=== PATIENT | male | born 1960 | race Caucasian/White ===

== ENCOUNTER 2017-01-18 10:05 | Outpatient (CLI) | payer BC, OTHER ==
[2017-01-18 13:27] LABS: BILIRUBIN,URINE NEGATIVE (NEGATIVE); PH,URINE 6.5 PH (5.0-7.5)
[2017-01-18 13:35] LABS: UA CHARGE (STRIP ONLY) YES
[2017-01-18 15:24] LABS: BASOPHILS # (AUTO) 0.1 10^3/uL (0.0-0.1); BASOPHILS % (AUTO) 0.5 %; EOSINOPHILS # (AUTO) 0.1 10^3/uL (0.0-0.7); EOSINOPHILS % (AUTO) 0.9 %; HCT - HEMATOCRIT 33.1 % (42.0-52.0); HGB - HEMOGLOBIN 11.2 g/dL (14.0-18.0); LYMPHOCYTES % (AUTO) 8.7 %; MEAN CORPUSCULAR HEMOGLOBIN 32.3 pg (27.0-31.0); MEAN CORPUSCULAR HGB CONC 33.7 g/dL (32.0-36.0); MEAN CORPUSCULAR VOLUME 95.9 fL (80.0-94.0); MEAN PLATELET VOLUME 7.5 fL (7.4-11.4); MONOCYTES # (AUTO) 0.8 10^3/uL (0.0-1.0); MONOCYTES % (AUTO) 7.3 %; NEUTROPHILS # (AUTO) 9.2 10^3/uL (1.5-6.6); NEUTROPHILS % (AUTO) 82.6 %; RED BLOOD COUNT 3.46 10^6/uL (4.70-6.10); RED CELL DISTRIBUTION WIDTH 15.1 % (12.0-15.0); UNCORRECTED WHITE BLOOD COUNT 11.2 x10^3/uL; WHITE BLOOD COUNT 11.2 x10^3/uL (4.8-10.8)
== END 2017-01-18 10:06 | disposition home or self-care (01) ==
LOC: LAB.R 10:05
DX: N39.0 Urinary tract infection, site not specified (principal)
CPT/HCPCS: 81001; 81003; 85025; 87086

== ENCOUNTER 2017-02-02 07:01 | Outpatient (CLI) | payer BC ==
[2017-02-02 22:43] LABS: HCT - HEMATOCRIT 40.7 % (42.0-52.0); HGB - HEMOGLOBIN 13.6 g/dL (14.0-18.0); MEAN CORPUSCULAR HGB CONC 33.3 g/dL (32.0-36.0); MEAN CORPUSCULAR VOLUME 95.9 fL (80.0-94.0); RED BLOOD COUNT 4.24 10^6/uL (4.70-6.10); WHITE BLOOD COUNT 8.3 x10^3/uL (4.8-10.8)
[2017-02-02 22:44] LABS: BILIRUBIN,URINE NEGATIVE (NEGATIVE); PH,URINE 5.5 PH (5.0-7.5)
[2017-02-02 22:47] LABS: UA w/ MICROSCOPIC CHARGE YES
[2017-02-02 22:48] LABS: CALCIUM 9.3 mg/dL (8.5-10.3); CREATININE 1.1 mg/dL (0.6-1.2); PHOSPHORUS 4.1 mg/dL (2.5-4.6); POTASSIUM 4.2 mmol/L (3.5-5.0)
[2017-02-02 22:55] LABS: UR CULTURE IF IND INDICATED
== END 2017-02-02 23:59 ==
LOC: LAB.R 07:01
DX: C67.8 Malignant neoplasm of overlapping sites of bladder (principal)
CPT/HCPCS: 80069; 81001; 81003; 87086

== ENCOUNTER 2017-02-09 14:14 | Emergency (ER) | payer BC ==
[2017-02-09] MEDS ORDERED: HYDROmorphone 1 MG/ML SYRINGE IM STA ×2 (15:36→17:25)
[2017-02-09] MEDS ORDERED: oxyCODONE 5 MG TABLET PO STA (15:37)
[2017-02-09] MEDS ORDERED: HYDROmorphone 1 MG/ML SYRINGE ONE ×2 (15:38→17:38)
[2017-02-09] MEDS ORDERED: oxyCODONE 5 MG TABLET ONE (15:38)
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
[2017-02-09] MEDS ORDERED: CYCLOBENZAPRINE 10 MG TABLET PO STA (17:25)
[2017-02-09] MEDS ORDERED: ONDANSETRON ODT 4 MG TABLET TL STA (17:25)
[2017-02-09] MEDS ORDERED: ONDANSETRON ODT 4 MG TABLET ONE (17:38)
[2017-02-09] MEDS ORDERED: CYCLOBENZAPRINE 10 MG TABLET PO ONE (17:38)
[2017-02-09 18:07] VITALS: BP 140/80
== END 2017-02-09 18:24 | disposition home or self-care (01) ==
LOC: ED 14:14
DX: S22.41XA Multiple fractures of ribs, right side, initial encounter for closed fracture (principal); V29.60XA Unspecified motorcycle rider injured in collision with unspecified motor vehicles in traffic accident, initial encounter
CPT/HCPCS: 71250; 96372; 99283; 99284; A9270; J1170; Q0162

== ENCOUNTER 2017-02-19 07:37 | Outpatient (CLI) | payer BC | END 2017-02-19 07:38 | disposition short-term general hospital (02) | LOC: EMS 07:37 | PROVIDERS: ATTEND Surgery | DX: R10.9 Unspecified abdominal pain (principal) | CPT/HCPCS: A0425; A0427 ==

== ENCOUNTER 2017-07-21 10:20 | Emergency (ER) | payer BC ==
[2017-07-21 10:30] VITALS: BP 134/86
--- NOTE | 2017-07-21 11:15 | XRAY Preliminary Report ---
Exam: XR ANKLE 3 VIEW RT IMPRESSION: 1. Right lateral talar process avulsion fracture. 2. Prominent right anterior calcaneal process versus avulsion fracture. If further detail is warrante d CT recommended. [facility] SITE ID: [id number]
--- NOTE | 2017-07-21 11:16 | XRAY Report ---
EXAM: RIGHT ANKLE RADIOGRAPHY EXAM DATE: 07/21/2017 10:43 AM. CLINICAL HISTORY: Rolled ankle. Right ankle pain. COMPARISON: None. TECHNIQUE: 3 views. FINDINGS: Bones: Chip avulsion fracture present arising from the right lateral talar process. Calcific density along the distal right lateral calcaneus and anterior process seen on the frontal view may represent an avulsion fracture or prominent anterior right calcaneus. No other osseous abnormalities. Joints: Ankle mortise is well-maintained. No ankle effusion. Soft Tissues: Soft tissue swelling. IMPRESSION: 1. Right lateral talar process avulsion fracture. 2. Prominent right anterior calcaneal process versus avulsion fracture. If further detail is warrante d CT recommended. [facility] Referring Provider Line: [phone] SITE ID: [id number]
[2017-07-21] MEDS ORDERED: IBUPROFEN 800 MG TABLET PO STA (12:33)
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
[2017-07-21] MEDS ORDERED: IBUPROFEN 800 MG TABLET PO ONE (12:42)
== END 2017-07-21 12:43 | disposition home or self-care (01) ==
LOC: ED 10:20
DX: S92.154A Nondisplaced avulsion fracture (chip fracture) of right talus, initial encounter for closed fracture (principal); X50.9XXA Other and unspecified overexertion or strenuous movements or postures, initial encounter; Y92.019 Unspecified place in single-family (private) house as the place of occurrence of the external cause
CPT/HCPCS: 73610; 99283; A9270

== ENCOUNTER 2023-04-04 13:48 | Emergency (ER) | payer BC, OTHER ==
[2023-04-04 14:10] LABS: BASOPHILS % (AUTO) 0.3 %; EOSINOPHILS # (AUTO) 0.1 10^3/uL (0.0-0.7); EOSINOPHILS % (AUTO) 1.2 %; HCT - HEMATOCRIT 46.9 % (42.0-52.0); HGB - HEMOGLOBIN 15.6 g/dL (14.0-18.0); LYMPHOCYTES # (AUTO) 1.5 10^3/uL (1.5-3.5); LYMPHOCYTES % (AUTO) 19.7 %; MEAN CORPUSCULAR HEMOGLOBIN 31.6 pg (27.0-31.0); MEAN CORPUSCULAR HGB CONC 33.3 g/dL (32.0-36.0); MEAN CORPUSCULAR VOLUME 95.1 fL (80.0-94.0); MONOCYTES # (AUTO) 0.5 10^3/uL (0.0-1.0); NEUTROPHILS # (AUTO) 5.4 10^3/uL (1.5-6.6); NEUTROPHILS % (AUTO) 71.5 %; PLT - PLATELET COUNT 263 10^3/uL (130-450); RED BLOOD COUNT 4.93 10^6/uL (4.70-6.10); RED CELL DISTRIBUTION WIDTH 12.3 % (12.0-15.0); WHITE BLOOD COUNT 7.6 x10^3/uL (4.8-10.8)
[2023-04-04 14:23] LABS: ALBUMIN 4.3 g/dL (3.2-5.5); ALBUMIN/GLOBULIN RATIO 1.7 (1.0-2.2); BILIRUBIN,TOTAL 1.3 mg/dL (0.2-1.0); CALCIUM 9.8 mg/dL (8.5-10.3); CREATININE 0.9 mg/dL (0.6-1.3); POTASSIUM 3.6 mmol/L (3.5-4.5); TOTAL PROTEIN 6.9 g/dL (6.4-8.9)
[2023-04-04] MEDS ORDERED: SODIUM CHLORIDE 0.9% 1,000 ML IV STA (15:57)
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
[2023-04-04] MEDS ORDERED: HYDROmorphone 1 MG/ML CARPUJECT IVP STA ×2 (16:18→19:08)
--- NOTE | 2023-04-04 18:30 | CT Report ---
PROCEDURE: ABDOMEN/PELVIS W INDICATIONS: IV only, abd/rectal pain CONTRAST: 100mL Omni 300 TECHNIQUE: After the administration of intravenous contrast, 5 mm thick sections acquired from the diaphragms to the symphysis. 5 mm thick coronal and sagittal reformats were acquired. For radiation dose reducti on, the following was used: automated exposure control, adjustment of mA and/or kV according to deepak ent size. COMPARISON: None FINDINGS: Image quality: Excellent. Lung bases and heart: Unremarkable. Liver: No liver mass. Mild diffuse intrahepatic biliary dilatation. Gallbladder and biliary tree: Surgically absent gallbladder. Biliary tree is slightly dilated measuri ng 1.2 cm in diameter maximally. No visible calcifications. Spleen: Normal. Pancreas: Normal. Adrenals: No nodules. Kidneys and ureters: No hydronephrosis. No renal cystic lesion which requires follow up. No solid mas s. Bowel and peritoneum: Mild dilatation of the proximal sigmoid colon solid stool. Distally, there is s uspicious circumferential bowel wall thickening of the distal sigmoid/proximal rectum which may refle ct bowel spasm versus wall edema versus tumor. Proximal colon and small bowel loops are within normal limits. The stomach is normal. There is suggestion of nodularity in the epigastric omentum and also seen in the left upper quadrant. No free fluid or free air. Lymph nodes: Borderline mesenteric adenopathy in the lower small bowel mesentery. No bulky retroperit piedra nodes. Vessels: Normal caliber vasculature. Moderate abdominal aortic calcification. PELVIS Reproductive organs: Normal size. Bladder: Decompressed urinary bladder. Pelvic lymph nodes: No pelvic adenopathy by size criteria. Bones: There is surgical fusion across both sacroiliac joints. There is a chronic deformity of the pu bic rami suggesting remote trauma. No acute fractures. Other: No significant ventral or inguinal hernia. IMPRESSION: 1. Findings suspicious for distal colonic/rectal mass. Infection or neoplasm may be present. Colonosc opy is recommended to seems clinically feasible. 2. There is suspicious omental nodularity and peritoneal surface nodularity concerning for metastatic disease. 3. Postcholecystectomy with mild intrahepatic biliary dilatation. Correlate with LFTs to determine cl inical significance. Reviewed by: Teresa Grimm MD on 04/04/2023 6:29 PM PDT Approved by: Teresa Grimm MD on 04/04/2023 6:29 PM PDT Station ID: [id number]
[2023-04-04 19:33] VITALS: BP 150/87; O2SAT 98
[2023-04-05] MEDS ORDERED: iohexoL-300 100 ML VIAL IVP ONE (01:18)
== END 2023-04-04 19:30 | disposition home or self-care (01) ==
LOC: ED 13:48
DX: R10.2 Pelvic and perineal pain (principal); R93.3 Abnormal findings on diagnostic imaging of other parts of digestive tract; Z85.51 Personal history of malignant neoplasm of bladder
CPT/HCPCS: 36415; 74177; 80053; 83690; 85025; 96374; 99284; J1170; Q9967

== ENCOUNTER 2023-04-27 01:07 | Outpatient (CLI) | payer OTHER | END 2023-04-27 01:08 | disposition critical access hospital (66) | LOC: EMS 01:07 | DX: R10.30 Lower abdominal pain, unspecified (principal); K59.00 Constipation, unspecified; R11.10 Vomiting, unspecified | CPT/HCPCS: A0425; A0429 ==

== ENCOUNTER 2023-04-27 01:25 | Emergency (ER) | payer OTHER ==
--- NOTE | 2023-04-27 01:24 | ED Physician Documentation ---
PD HPI ABD PAIN - Stated complaint Stated Complaint: ABD PX - History obtained from History obtained from: Patient, EMS - Additional information Additional information: MADELINE (BLS). HPI from BLS as well as from patient. Patient complains of generalized abdominal pain since earlier tonight associated with nausea and vomiting. There was no inciting event. Pain is worse with palpation. He has had similar symptoms for several weeks; he was treated and released from this emergency department 04/04/23 for these symptoms. He was subsequently evaluated in [facility] ED for same symptoms, admitted 04/18 and discharged 04/21. Patient says he has had nausea and vomiting with the pain. He says the suspected cause of his symptoms based on testing here and at [facility] is constipation. 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 He has not scheduled a follow-up appointment with GI. Patient denies fever, blood in stool or vomitus, black/tarry stool. There are no ameliorating factors; he was prescribed percocet from this ED last month but patient says he has not taken any due to diagnosis of constipation and thus concern that narcotic/opiate medication would worsen constipation. Patient says he has been taking very little solid PO over past few weeks, mostly drinking liquids and taking ensure to provide nutrition. Review of Systems Constitutional: reports: Reviewed and negative Cardiac: reports: Reviewed and negative Respiratory: reports: Reviewed and negative GI: reports: Abdominal Pain, Nausea, Vomiting, Constipation. denies: Abdominal Swelling, Diarrhea, Hematemesis, Bloody / black stool : denies: Dysuria, Frequency PD PAST MEDICAL HISTORY - Past Medical History Past Medical History: Yes - Present Medications Home Medications: Ambulatory Orders Medication Instructions Recorded Confirmed oxyCODONE/ACET 5/325 [Percocet 5 1 each PO Q4-6H PRN #15 tablet 04/17/13 07/21/17 mg/325 mg] Enoxaparin [Lovenox] 30 mg PO DAILY 02/09/17 07/21/17 Ondansetron Odt [Zofran] 4 mg TL Q6H PRN #20 tablet 02/09/17 07/21/17 Oxycodone HCl 5 - 10 mg PO Q6H PRN #20 capsule 02/09/17 07/21/17 Sulfamethox/Trimeth 800/160 1 tab PO DAILY 02/09/17 07/21/17 [Bactrim Ds] methocarbamoL [Robaxin-750] 750 mg PO Q8HR PRN #14 tablet 02/09/17 07/21/17 Ciprofloxacin HCl [Cipro] 500 mg PO BID #14 tablet 04/04/23 Dicyclomine [Bentyl] 1 - 2 tab PO QID PRN #20 cap 04/04/23 Ondansetron Odt [Zofran] 4 mg TL Q6H PRN #10 tablet 04/04/23 Oxycodone HCl/Acetaminophen 1 - 2 each PO Q6H PRN #14 tablet 04/04/23 [Percocet 5-325 mg Tablet] metroNIDAZOLE [Flagyl] 500 mg PO TID 7 Days #21 tablet 04/04/23 Ciprofloxacin HCl 1 tablet PO BID 7 Days #14 tablet 04/27/23 Ondansetron Odt [Zofran Odt] 4 mg TL Q6H PRN #14 tablet 04/27/23 metroNIDAZOLE [Flagyl] 500 mg PO TID 7 Days #21 tablet 04/27/23 oxyCODONE [Roxicodone] 5 - 10 mg PO Q6H PRN #14 tablet 04/27/23 - Allergies Allergies/Adverse Reactions: Allergies Allergy/AdvReac Type Severity Reaction Status Date / Time No Known Drug Allergies Allergy Verified 04/17/13 06:17 PD ED PE NORMAL - Vitals Vital signs reviewed: Yes - General General: Alert and oriented X 3, Well developed/nourished, Other (AAOx3, appears to be uncomfortable due to pain and at times is in obvious painful distress) - HEENT HEENT: Other (tacky mucous membranes) - Neck Neck: Supple, no meningeal sign - Cardiac Cardiac: RRR, No murmur - Respiratory Respiratory: No respiratory distress, Clear bilaterally - Abdomen Abdomen: Normal bowel sounds, Non distended, Other (diffuse mild TTP without rebound or guarding) - Back Back: No CVA TTP Results - Vitals Vitals: Vital Signs - 24 hr 04/27/23 04/27/23 06:12 08:25 Temperature 36.4 C L Heart Rate 83 73 Respiratory 18 20 Rate Blood Pressure 186/107 H 188/97 H O2 Saturation 98 100 Oxygen O2 Source Room air - Labs Labs: Laboratory Tests 04/27/23 04/27/23 01:35 01:35 WBC 8.2 RBC 4.48 L Hgb 14.3 Hct 42.2 MCV 94.2 H MCH 31.9 H MCHC 33.9 RDW 12.4 Plt Count 236 MPV 9.7 Neut # (Auto) 6.9 H Lymph # (Auto) 0.8 L Bowie # (Auto) 0.4 Eos # (Auto) 0.0 Baso # (Auto) 0.0 Absolute Nucleated RBC 0.00 Nucleated RBC % 0.0 Sodium 138 Potassium 4.0 Chloride 102 Carbon Dioxide 27 Anion Gap 9.0 BUN 16 Creatinine 0.9 Estimated GFR (MDRD) 85 L Glucose 114 H Calcium 9.6 Total Bilirubin 0.9 AST 12 ALT 9 L Alkaline Phosphatase 57 Total Protein 6.3 L Albumin 3.9 Globulin 2.4 Albumin/Globulin Ratio 1.6 Lipase 12 - Rads (name of study) CT A/P with IV contrast Relevant Findings:: Prelim report reviewed, See rad report PD Medical Decision Making - ED course Complexity details: reviewed old records (reviewed ED MD note from last month's [facility] ED visit. Also requested d/c summary from inpatient stay ([facility]) last week ;received these records by fax and reviewed by me), reviewed results, re- evaluated patient, considered differential, d/w patient ED course: Unremarkable CBC, ER abdominal panel including LFTs, lipase. He is given total of two liters NS IV during his ED stay. He is also given 30mg IV ketoroloac, 4mg IV zofran x 2 doses, 2.5 mg IV droperidol, 6mg IV morphine sulfate IV, and 1 mg IV dilaudid with repeat (second) dose. CT A/P with IV contrast (could not tolerate PO) interpreted by radiologist as findings c/w diffuse enteritis and proximal colitis. Results d/w patient. Despite needing repeated doses of anti-nauseants and analgesics (both non- narcotic as well as narcotic/opiate), he was getting symptom relief between redosing of medications. After results of tests returned, I reviewed the results with patient. I discussed diagnosis of enterocolitis. At this time, there is no apparent indication for benefit/necessity for inpatient treatment. Ideally he can be seen in follow up with his asphalt coater. I advised him to contact his GI group as well as PCP and make appointments (next available) for both. I am e-prescribing oxycodone, ondansetron, ciprofloxacin , and metronidazole for him ([facility]). The antibiotics are to cover for possible bacterial cause. I am prescribing the oxycodone because although patient says he has not taken any of the previously prescribed percocet, he does not know if he even filled the rx or, if he did, where it is. Return precautions are carefully discussed. Departure - Departure Disposition: Home, Self Care Clinical Impression: Enteritis Condition: Good Instructions: ED Abdominal Pain Unkn Cause Male Prescriptions: Ciprofloxacin HCl 1 tablet PO BID 7 Days #14 tablet metroNIDAZOLE [Flagyl] 500 mg PO TID 7 Days #21 tablet oxyCODONE [Roxicodone] 5 - 10 mg PO Q6H PRN #14 tablet PRN Reason: Pain >8 Ondansetron Odt [Zofran Odt] 4 mg TL Q6H PRN #14 tablet PRN Reason: Nausea / Vomiting Comments: The CT scan performed tonight shows diffuse inflammation of your small intestines, a condition called enteritis; the inflammation extends into the large intestine as well, which is colitis. The combination of small and large intestine inflammation is called enterocolitis. There are various causes of enterocolitis including infectious (bacterial, viral, parasitic), inflammatory bowel diseases such as Crohn's disease or ulcerative colitis, celiac disease (gluten intolerance); there are other causes, as well. Follow-up with your asphalt coater as soon as can be arranged; they would be the most likely branch of medicine to determine, if possible, the underlying cause of your enterocolitis. You should also follow-up with your primary care provider, as well. Your primary care provider might also be able to continue testing to potentially determine the underlying cause of your symptoms. In the meantime, I am prescribing another course of the antibiotics you were prescribed last month from this emergency department. The reason for this is, as noted above, bacteria are a possible cause of enterocolitis; the antibiotics I am prescribing for you have broad coverage of the most common bacterial causes of this diagnosis. I am also prescribing oxycodone, as you have indicated to me that you are not sure if you have this medication at home from the previous ED visit. Lastly, I am prescribing ondansetron (antinausea medication), as well. These prescriptions are all being electronically submitted to the [facility] in [place]. [place]ed[place]'s CT again shows some thickening of the wall of the rectum, raising the possibility of a mass (malignancy). The radiologist notes that this appears the same as the CT scan performed in this ED last month. I am prescribing a short course of narcotic pain medication for you. These are potentially dangerous and addictive medications that should be used carefully. These medications may constipate you. Take an qzaf-iwd-ogzzoir stool softener (docusate) twice daily with plenty of water while taking these medications. If you go 24 hours without a bowel movement, take wgog-itd-ettoppn miralax, per package instructions. Do not drink or drive while taking these medications. If you received narcotic or sedating medications while in the emergency department, do not drive for 24 hours. Store this medication in a safe, secure place and out of reach of children. It is a violation of federal law to give or sell this medication to another person or to use in a manner other than prescribed. The ED will not refill narcotic prescriptions, including prescriptions lost or stolen. To dispose of unwanted medications: 1. [facility] at [address] in [place] has a medication drop box. They accept prescription medications (in pill form) Tuesday through Tuesday 9:00 a.m. to 5:00 p.m. 2. [facility] accepts prescription medications (in pill form only) for disposal year round. Call for more inf ormation. 3. Contact the [facility] for the next [facility] sponsored prescription drug collection event. , [phone], or [phone]; Forms: PCP List Discharge Date/Time: 04/27/23 08:26
[2023-04-27] MEDS ORDERED: SODIUM CHLORIDE 0.9% 1,000 ML IV STA ×2 (01:36→03:20)
[2023-04-27] MEDS ORDERED: KETOROLAC 30 MG/ML VIAL IVP STA (01:37)
[2023-04-27] MEDS ORDERED: ONDANSETRON 4 MG/2 ML VIAL IVP STA ×2 (01:37→03:20)
[2023-04-27 01:48] LABS: BASOPHILS % (AUTO) 0.4 %; EOSINOPHILS % (AUTO) 0.4 %; HCT - HEMATOCRIT 42.2 % (42.0-52.0); HGB - HEMOGLOBIN 14.3 g/dL (14.0-18.0); LYMPHOCYTES # (AUTO) 0.8 10^3/uL (1.5-3.5); LYMPHOCYTES % (AUTO) 9.3 %; MEAN CORPUSCULAR HEMOGLOBIN 31.9 pg (27.0-31.0); MEAN CORPUSCULAR HGB CONC 33.9 g/dL (32.0-36.0); MEAN CORPUSCULAR VOLUME 94.2 fL (80.0-94.0); MEAN PLATELET VOLUME 9.7 fL (7.4-11.4); MONOCYTES # (AUTO) 0.4 10^3/uL (0.0-1.0); MONOCYTES % (AUTO) 4.9 %; NEUTROPHILS # (AUTO) 6.9 10^3/uL (1.5-6.6); NEUTROPHILS % (AUTO) 84.8 %; PLT - PLATELET COUNT 236 10^3/uL (130-450); RED BLOOD COUNT 4.48 10^6/uL (4.70-6.10); RED CELL DISTRIBUTION WIDTH 12.4 % (12.0-15.0); WHITE BLOOD COUNT 8.2 x10^3/uL (4.8-10.8)
[2023-04-27 02:04] LABS: ALBUMIN 3.9 g/dL (3.2-5.5); ALBUMIN/GLOBULIN RATIO 1.6 (1.0-2.2); BILIRUBIN,TOTAL 0.9 mg/dL (0.2-1.0); CALCIUM 9.6 mg/dL (8.5-10.3); CREATININE 0.9 mg/dL (0.6-1.3); TOTAL PROTEIN 6.3 g/dL (6.4-8.9)
[2023-04-27] MEDS ORDERED: DROPERIDOL 5 MG/2 ML VIAL IVP STA (02:27)
[2023-04-27] MEDS ORDERED: MORPHINE 2 MG/ML CARPUJECT IVP STA (03:19)
[2023-04-27] MEDS ORDERED: HYDROmorphone 1 MG/ML CARPUJECT IVP STA ×2 (04:15→07:49)
[2023-04-27] MEDS ORDERED: IOVERSOL 320 100 ML VIAL IVP ONE (06:28)
[2023-04-27 08:33] VITALS: BP 188/97; O2SAT 100
--- NOTE | 2023-04-27 08:56 | CT Report ---
PROCEDURE: ABDOMEN/PELVIS W INDICATIONS: abdominal pain CONTRAST: Opti 320 100ml TECHNIQUE: After the administration of IV contrast, 5 mm thick sections acquired from the diaphragms to the symp hysis. 5 mm thick coronal and sagittal reformats were acquired. For radiation dose reduction, the f ollowing was used: automated exposure control, adjustment of mA and/or kV according to patient size. COMPARISON: CT abdomen 04/04/2023 FINDINGS: Image quality: There is limited visualization of the pelvis secondary to artifact from SI joint fusio n hardware. Lung bases and heart: Unremarkable. Liver: No solid mass. Gallbladder and biliary tree: Collaterals been removed. Mild prominence of the biliary system. This c ould be related to postcholecystectomy sequela as it is unchanged. However, recommend correlation wit h laboratory values. Spleen: No splenomegaly. Pancreas: No pancreatic ductal dilation. Adrenals: No adrenal nodule. Kidneys and ureters: No hydronephrosis. No renal cystic lesion which requires follow up. No solid mas s. Bowel and peritoneum: There is mild fluid distention and mild thickening within the small bowel.. The proximal colon is also present. Hiatal hernia is present. Mild perihepatic and minimal scattered asc ites. As identified on prior exam, there is an appearance of bowel wall thickening in the distal sigm oid/proximal rectum. This is again identified without change. Lymph nodes: Previous identified appearance of borderline adenopathy within the small bowel mesentery remains present particularly noting areas of nodularity in the right upper abdomen on series 2 image s [id number]. Vessels: No infrarenal aortic aneurysm. PELVIS Reproductive organs: Unremarkable. Bladder: No abnormal wall thickening, accounting for underdistension. Pelvic lymph nodes: No pelvic adenopathy by size criteria. Bones: No aggressive osseous abnormality. SI joint fusion is present. Previous fracture of the inferi or pubic rami are noted. Other: No significant ventral or inguinal hernia. IMPRESSION: Appearance of small bowel and proximal colon fluid filled distention with areas of thickening which c ould be indicative of enteritis/colitis. Previously identified thickening at the rectosigmoid junction with areas of soft tissue nodularity an d borderline adenopathy remains concerning for malignancy with potential carcinomatosis. Minimal asci gerald. The above findings are concordant with preliminary report. Reviewed by: Keysha Villatoro MD on 04/27/2023 8:55 AM PDT Approved by: Keysha Villatoro MD on 04/27/2023 8:55 AM PDT Station ID: [id number]
--- NOTE | 2023-04-27 08:58 | XRAY Report ---
PROCEDURE: Abdomen Acute INDICATIONS: abdominal pain TECHNIQUE: 2 views of the abdomen were acquired. COMPARISON: None. FINDINGS: Surgical changes and devices: SI joint fusion. Cholecystectomy clips. Chest: Lungs are clear. Heart size is normal. No pleural effusions. No pneumoperitoneum. Bowel: No pneumoperitoneum. The bowel gas pattern is nonspecific given mild appearance of scattered small bowel fluid levels. Stool load within normal limits. Soft tissues: No masses; visualized solid organ contours appear normal in size. No suspicious abdom inal calcifications. Bones: No acute fractures. IMPRESSION: Nonspecific gas pattern with small scattered fluid levels which may be indicative of developing obstr uction/ileus/enteritis. The above findings are concordant with preliminary report. Reviewed by: Keysha Villatoro MD on 04/27/2023 8:57 AM PDT Approved by: Keysha Villatoro MD on 04/27/2023 8:57 AM PDT Station ID: [id number]
== END 2023-04-27 08:26 | disposition home or self-care (01) ==
LOC: EDUNIT# → ED 01:25
DX: K52.9 Noninfective gastroenteritis and colitis, unspecified (principal)
CPT/HCPCS: 36415; 74022; 74177; 80053; 83690; 85025; 96374; 96375; 96376; 99284; 99285; J1170; Q9967

== ENCOUNTER 2023-06-04 10:54 | Outpatient (CLI) | payer OTHER | END 2023-06-04 10:55 | disposition EMS.NT | LOC: EMS 10:54 | DX: R10.11 Right upper quadrant pain (principal) ==

== ENCOUNTER 2023-06-22 08:00 | Outpatient (CLI) | payer OTHER ==
[2023-06-22 19:59] LABS: BASOPHILS % (AUTO) 0.2 %; EOSINOPHILS # (AUTO) 0.3 10^3/uL (0.0-0.7); EOSINOPHILS % (AUTO) 2.6 %; HGB - HEMOGLOBIN 12.1 g/dL (14.0-18.0); LYMPHOCYTES # (AUTO) 1.2 10^3/uL (1.5-3.5); LYMPHOCYTES % (AUTO) 11.5 %; MEAN CORPUSCULAR HEMOGLOBIN 31.7 pg (27.0-31.0); MEAN CORPUSCULAR HGB CONC 33.6 g/dL (32.0-36.0); MEAN CORPUSCULAR VOLUME 94.2 fL (80.0-94.0); MEAN PLATELET VOLUME 10.3 fL (7.4-11.4); MONOCYTES # (AUTO) 0.8 10^3/uL (0.0-1.0); MONOCYTES % (AUTO) 7.6 %; NEUTROPHILS # (AUTO) 8.3 10^3/uL (1.5-6.6); NEUTROPHILS % (AUTO) 77.1 %; PLT - PLATELET COUNT 191 10^3/uL (130-450); RED BLOOD COUNT 3.82 10^6/uL (4.70-6.10); RED CELL DISTRIBUTION WIDTH 14.3 % (12.0-15.0); WHITE BLOOD COUNT 10.8 x10^3/uL (4.8-10.8)
[2023-06-22 20:24] LABS: ALBUMIN 3.7 g/dL (3.2-5.5); ALBUMIN/GLOBULIN RATIO 1.5 (1.0-2.2); BILIRUBIN,TOTAL 0.9 mg/dL (0.2-1.0); CALCIUM 8.7 mg/dL (8.5-10.3); CREATININE 0.5 mg/dL (0.6-1.3); MAGNESIUM 1.7 mg/dL (1.7-2.3); PHOSPHORUS 3.3 mg/dL (2.5-5.0); POTASSIUM 3.5 mmol/L (3.5-4.5); TOTAL PROTEIN 6.2 g/dL (6.4-8.9)
== END 2023-06-22 23:59 | disposition home or self-care (01) ==
LOC: LAB.R 08:00
PROVIDERS: ATTEND Internal Medicine
DX: C78.6 Secondary malignant neoplasm of retroperitoneum and peritoneum (principal)
CPT/HCPCS: 80053; 83735; 84100; 84134; 85025